=== PATIENT | female | born 1985 | race Caucasian/White ===

== ENCOUNTER 2020-02-06 19:22 | Emergency (ER) | payer SELFPAY ==
--- NOTE | 2020-02-06 19:41 | EDM.PDOC ---
ED HPI GENERAL MEDICAL PROBLEM - General Chief Complaint: General Stated Complaint: Bug bite Time Seen by Provider: 02/06/20 19:34 Source of Information: Reports: Patient, RN History Limitations: Reports: No Limitations - History of Present Illness INITIAL COMMENTS - FREE TEXT/NARRATIVE: Patient has been camping and wagoner picking. She has a 'bite' on her 2nd digit on her right foot She thought it was a poison ken at first. She noticed the spot two days ago. It was just a kassie on the skin. Today she noticed it getting red. In the last hour it started to have a bruised appearance. She has had on open toed shoes. She does not recall a bit/sting or injury to the area. The area has now swollen and is bruised. SHe has sensation to the tip of the toe and the rest of the digits on her foot. She is unsure of her last tetanus Onset: Sudden Onset Date: 02/04/20 Onset Time: 02:00 Duration: Day(s): Location: Reports: Lower Extremity, Right Quality: Reports: Pressure, Throbbing Severity: Moderate Improves with: Reports: None Worsens with: Reports: None Context: Reports: Other (bite) Associated Symptoms: Reports: No Other Symptoms Treatments TRANSFUSION NURSE: Reports: Acetaminophen - Related Data Allergies Allergy/AdvReac Type Severity Reaction Status Date / Time No Known Allergies Allergy Verified 02/06/20 19:24 Home Meds: Home Meds cephALEXin [Keflex] 500 mg PO Q8H 10 Days #30 cap 02/06/20 [Rx] ED ROS GENERAL - Review of Systems Review Of Systems: See Below Constitutional: Reports: No Symptoms Respiratory: Reports: No Symptoms Cardiovascular: Reports: No Symptoms Musculoskeletal: Reports: No Symptoms Skin: Reports: Wound (2nd digit right foot - probable bug bite) Neurological: Reports: No Symptoms Hematologic/Lymphatic: Reports: No Symptoms Immunologic: Reports: No Symptoms ED EXAM, GENERAL - Physical Exam Exam: See Below Exam Limited By: No Limitations General Appearance: Alert, WD/WN, No Apparent Distress Neck: Normal Inspection, Supple, Non-Tender, Full Range of Motion Respiratory/Chest: No Respiratory Distress, Lungs Clear, Normal Breath Sounds Cardiovascular: Normal Peripheral Pulses, Regular Rate, Rhythm, No Edema, No Gallop Extremities: Normal Inspection, Normal Range of Motion, Normal Capillary Refill, Limited Range of Motion (2nd digit right foot). No: Non-Tender (2nd toe right foot swollen and tender touch), Joint Swelling Neurological: Alert, Oriented, CN II-XII Intact, Normal Cognition, Normal Gait, Normal Reflexes Skin Exam: Warm, Erythema (2nd toe right foot), Increased Warmth (right foot 2nd toe), Wound/Incision (bite great and 2nd toe rigth foot) Lymphatic: No Adenopathy Course - Vital Signs Text/Narrative:: Provided Im antibiotic coverage as pharmacy not available until or Saturday. Tetanus provided. Oral cephalexin RX provided to be filled when pharmacy available. Last Recorded V/S: Last Vital Signs Temp 37.3 C 02/06/20 19:25 Pulse 78 02/06/20 19:25 Resp 18 02/06/20 19:25 BP 120/73 02/06/20 19:25 Pulse Ox 100 02/06/20 19:25 - Orders/Labs/Meds Orders: Active Orders 24 hr Category Date Time Status Vaccines to be Administered [RC] PER UNIT ROUTINE Care 02/06/20 19:51 Active Meds: Medications Discontinued Medications Generic Name Dose Route Start Last Admin Trade Name Yaneli PRN Reason Stop Dose Admin Ceftriaxone Sodium 1 gm 02/06/20 19:47 02/06/20 20:15 Rocephin IM 02/06/20 19:48 1 gm ONETIME ONE Administration Diphtheria/Tetanus/Acell Pertussis 0.5 ml 02/06/20 19:50 02/06/20 20:16 Boostrix IM 02/06/20 19:51 0.5 ml .ONCE ONE Administration Departure - Departure Time of Disposition: 20:20 Disposition: Home, Self-Care 01 Condition: Good Clinical Impression: Insect bite - Discharge Information *PRESCRIPTION DRUG MONITORING PROGRAM REVIEWED*: Not Applicable *COPY OF PRESCRIPTION DRUG MONITORING REPORT IN PATIENT ADAN: Not Applicable Prescriptions: cephALEXin [Keflex] 500 mg PO Q8H 10 Days #30 cap Instructions: Insect Bite, Adult Forms: ED Department Discharge Additional Instructions: Return to ED if any changes at the site of the bite. IF loss of feeling/sensation or loss of circulation return to ED. May soak in epson salt and elevate foot. Keep open to air. Fill Rx and take all of the medication without missing doses or saving for future infection Sepsis Event Note (ED) - Evaluation Sepsis Screening Result: No Definite Risk - Focused Exam Vital Signs: Vital Signs Temp Pulse Resp BP Pulse Ox 02/06/20 19:25 37.3 C 78 18 120/73 100 - My Orders Last 24 Hours: My Active Orders 02/06/20 19:51 Vaccines to be Administered [RC] PER UNIT ROUTINE - Assessment/Plan Last 24 Hours: My Active Orders 02/06/20 19:51 Vaccines to be Administered [RC] PER UNIT ROUTINE
[2020-02-06] MEDS: cefTRIAXone 1 GM Vial IM ONE (20:15)
[2020-02-06] MEDS: Diphtheria,Pertussis(Acell),Tetanus Vaccine 0.5 ML SDV inactive IM ONE (20:16)
== END 2020-02-06 20:24 | disposition home or self-care (01) ==
LOC: LB.ED 19:22
DX: S90.461A Insect bite (nonvenomous), right great toe, initial encounter (principal); S90.464A Insect bite (nonvenomous), right lesser toe(s), initial encounter; Z23 Encounter for immunization; W57.XXXA Bitten or stung by nonvenomous insect and other nonvenomous arthropods, initial encounter
CPT/HCPCS: 90471; 90715; 96372; 99282-25; J0696

== ENCOUNTER 2024-02-13 08:36 | Emergency (ER) | payer MEDICAID, OTHER | END 2024-02-13 09:23 | disposition home or self-care (01) | LOC: LB.ED 08:36 | DX: K04.7 Periapical abscess without sinus (principal); Z88.1 Allergy status to other antibiotic agents | CPT/HCPCS: 99283 ==